=== PATIENT | female | born 1985 | race African-American/Black ===

== ENCOUNTER 2018-01-11 18:56 | Emergency (ER) | payer OTHER ==
[~2018-01-11] VITALS: Ht 162.6 cm; Wt 123.0 kg
[2018-01-12] MEDS ORDERED: SODIUM CHLORIDE 0.9% 1,000 ML IV ONE (03:45)
[2018-01-12] MEDS ORDERED: MECLIZINE 25MG TABLET PO ONE (03:45)
[2018-01-12 04:15] LABS: BASOPHILS % 0.4 % (0.0-2.0); EOSINOPHILS % 2.1 % (0.0-5.0); HEMATOCRIT. 32.4 % (36.0-48.0); LYMPHOCYTES % 22.6 % (20.0-50.0); MEAN CORPUSCULAR HEMOGLOBIN 22.7 pg (28.0-32.0); MEAN CORPUSCULAR VOLUME 73.3 fL (81.0-99.0); MEAN PLATELET VOLUME 8.9 fl (7.4-10.4); MONOCYTES % 7.1 % (2.0-8.0); NEUTROPHILS % 67.8 % (40.0-76.0); PLATELET 366 x1000/uL (130-400); RED BLOOD CELL COUNT 4.41 mill/uL (4.2-5.4); RED CELL DISTRIBUTION WIDTH 18.3 % (11.6-14.6)
[2018-01-12 04:19] LABS: PROTHROMBIN TIME 10.5 sec (9.4-11.6)
[2018-01-12 04:23] LABS: CHLORIDE 105 mEq/L (98-107)
[2018-01-12 04:24] LABS: HCG SCREEN NEGATIVE
[2018-01-12 04:25] LABS: CLARITY URINE CLOUDY (CLEAR); COLOR URINE YELLOW (YELLOW); KETONES URINE NEGATIVE (NEGATIVE); LEUKOCYTE ESTERASE URINE 2+ (NEGATIVE); NITRITE URINE NEGATIVE (NEGATIVE); OCCULT BLOOD URINE 3+ (NEGATIVE); PROTEIN URINE TRACE (NEGATIVE); SPECIFIC GRAVITY URINE 1.027 (1.005-1.030); UROBILINOGEN URINE 0.2 E.U./dL (0.2-1.0)
[2018-01-12 04:29] LABS: ETHANOL BLOOD < 10 mg/dL
[2018-01-12 05:07] LABS: *AMPHETAMINES SCREEN URINE NEGATIVE (NEGATIVE); *BARBITURATES SCREEN URINE NEGATIVE (NEGATIVE); CANNABINOID URINE SCREEN NEGATIVE (NEGATIVE); OPIATES URINE SCREEN NEGATIVE (NEGATIVE); PHENCYCLIDINE URINE SCREEN NEGATIVE (NEGATIVE)
[2018-01-12 05:21] LABS: *BENZODIAZEPINES SCREEN URINE NEGATIVE (NEGATIVE); *COCAINE SCREEN URINE NEGATIVE (NEGATIVE); METHADONE URINE SCREEN NEGATIVE (NEGATIVE)
[2018-01-12] MEDS ORDERED: CEFTRIAXONE 1 G PREMIX 50 ML IV NR (05:45)
[2018-01-12 06:41] VITALS: BP 124/80
== END 2018-01-12 06:41 | disposition home or self-care (01) ==
LOC: ER 18:56
DX: R42 Dizziness and giddiness (principal); N39.0 Urinary tract infection, site not specified; B96.89 Other specified bacterial agents as the cause of diseases classified elsewhere; R03.0 Elevated blood-pressure reading, without diagnosis of hypertension; E87.2 Acidosis; D64.9 Anemia, unspecified
CPT/HCPCS: 36415; 70450; 71045; 80053; 80305; 81003; 83605; 84484; 84703; 85025; 85044; 85610; 87077; 87086; 93005; 96361; 96365; 99285; G0482; J0696; J7030; Z7610; J8597

== ENCOUNTER 2020-08-15 13:01 | Emergency (ER) | payer OTHER ==
[~2020-08-15] VITALS: Ht 172.7 cm; Wt 118.0 kg
[2020-08-15] MEDS ORDERED: KETOROLAC 30MG/ML VIAL IV ONE (13:30)
[2020-08-15] MEDS ORDERED: SODIUM CHLORIDE 0.9% 1,000 ML IV ONE (13:30)
[2020-08-15 14:30] LABS: CLARITY URINE TURBID (CLEAR); COLOR URINE RED (YELLOW); KETONES URINE NEGATIVE (NEGATIVE); LEUKOCYTE ESTERASE URINE 2+ (NEGATIVE); NITRITE URINE POSITIVE (NEGATIVE); OCCULT BLOOD URINE 2+ (NEGATIVE); PROTEIN URINE 2+ (NEGATIVE); SPECIFIC GRAVITY URINE 1.023 (1.005-1.030); UROBILINOGEN URINE 0.2 E.U./dL (0.2-1.0)
[2020-08-15 14:32] LABS: BASOPHILS % 0.5 % (0.0-2.0); EOSINOPHILS % 1.3 % (0.0-5.0); HEMATOCRIT. 30.9 % (36.0-48.0); HEMOGLOBIN. 9.1 g/dL (12.0-16.0); LYMPHOCYTES % 13.2 % (20.0-50.0); MEAN CORPUSCULAR HEMOGLOBIN 17.7 pg (28.0-32.0); MEAN CORPUSCULAR VOLUME 60.2 fL (81.0-99.0); MEAN PLATELET VOLUME 9.4 fl (7.4-10.4); MONOCYTES % 4.2 % (2.0-8.0); NEUTROPHILS % 80.8 % (40.0-76.0); PLATELET 298 x1000/uL (130-400); RED BLOOD CELL COUNT 5.14 mill/uL (4.2-5.4); RED CELL DISTRIBUTION WIDTH 23.9 % (11.6-14.6)
[2020-08-15 14:36] LABS: CHLORIDE 103 mEq/L (98-107)
[2020-08-15 14:38] LABS: PROTHROMBIN TIME 10.3 sec (9.6-11.0)
[2020-08-15 14:39] LABS: HCG SCREEN NEGATIVE
[2020-08-15 15:15] VITALS: BP 147/86
[2020-08-15 15:30] LABS: PLATELET ESTIMATE NORMAL
== END 2020-08-15 15:49 | disposition home or self-care (01) ==
LOC: ER 13:17
DX: N93.9 Abnormal uterine and vaginal bleeding, unspecified (principal); D25.9 Leiomyoma of uterus, unspecified; D50.9 Iron deficiency anemia, unspecified; R79.89 Other specified abnormal findings of blood chemistry
CPT/HCPCS: 36415; 76830; 76856; 80053; 81003; 81025; 84703; 85025; 85610; 86850; 86900; 86901; 87077; 87086; 93005; 96361; 96374; 99285; J1885; J7030

== ENCOUNTER 2021-10-02 18:18 | Inpatient (IN) | payer OTHER ==
[~2021-10-02] VITALS: Ht 165.1 cm; Wt 122.0 kg
[2021-10-02 23:40] LABS: BASOPHILS % 0.8 % (0.0-2.0); EOSINOPHILS % 1.8 % (0.0-5.0); HEMATOCRIT. 24.1 % (36.0-48.0); LYMPHOCYTES % 20.8 % (20.0-50.0); MEAN CORPUSCULAR VOLUME 68.6 fL (81.0-99.0); MEAN PLATELET VOLUME 9.1 fl (7.4-10.4); MONOCYTES % 5.9 % (2.0-8.0); NEUTROPHILS % 70.7 % (40.0-76.0); PLATELET 501 x1000/uL (130-400); RED BLOOD CELL COUNT 3.52 mill/uL (4.2-5.4); RED CELL DISTRIBUTION WIDTH 27.6 % (11.6-14.6)
[2021-10-02 23:45] LABS: CHLORIDE 106 mEq/L (98-107)
[2021-10-02 23:53] LABS: PLATELET ESTIMATE NORMAL
[2021-10-02 23:55] LABS: B-HCG QUANTITATIVE < 1 mIU/mL (<3)
[2021-10-03] MEDS ORDERED: SODIUM CHLORIDE 0.9% 1,000 ML IV ONE
[2021-10-03 09:00] VITALS: BP 147/93
[2021-10-03] MEDS ORDERED: FERR325T23 MT (09:59)
[2021-10-03] MEDS ORDERED: IPRATROPIUM/ALBUTEROL 0.5-3(2.5)MG/3ML NEB HHN PRN (10:15)
[2021-10-03] MEDS ORDERED: DIPHENHYDRAMINE 50MG/ML VIAL IV PRN (10:15)
[2021-10-03] MEDS ORDERED: ONDANSETRON HCL 4MG/2ML INJ IV PRN (10:15)
[2021-10-03] MEDS ORDERED: ACETAMINOPHEN 325MG TABLET PO PRN (10:15)
[2021-10-03] MEDS ORDERED: CLONIDINE 0.1MG TABLET PO PRN (10:15)
[2021-10-03 12:00] VITALS: BP 121/77
[2021-10-03 16:00] VITALS: BP 138/89
[2021-10-03 20:00] VITALS: BP 129/66
[2021-10-04] VITALS (12 sets, daily range): BP systolic 112–152; BP diastolic 61–89
[2021-10-04 05:59] LABS: BASOPHILS % 0.5 % (0.0-2.0); EOSINOPHILS % 2.6 % (0.0-5.0); HEMATOCRIT. 23.9 % (36.0-48.0); HEMOGLOBIN. 7.2 g/dL (12.0-16.0); LYMPHOCYTES % 18.8 % (20.0-50.0); MEAN CORPUSCULAR VOLUME 69.6 fL (81.0-99.0); MONOCYTES % 6.9 % (2.0-8.0); NEUTROPHILS % 71.2 % (40.0-76.0); PLATELET 449 x1000/uL (130-400); RED BLOOD CELL COUNT 3.43 mill/uL (4.2-5.4); RED CELL DISTRIBUTION WIDTH 28.5 % (11.6-14.6)
[2021-10-04 06:18] LABS: CHLORIDE 107 mEq/L (98-107)
[2021-10-04 06:27] LABS: LDL CHOLESTEROL 101 mg/dL (5-100)
[2021-10-04 06:29] LABS: HDL CHOLESTEROL 60 mg/dL (40-59)
[2021-10-04 19:09] LABS: HEMATOCRIT 30.8 % (36.0-48.0); HEMOGLOBIN 9.3 g/dL (12.0-16.0)
== END 2021-10-04 20:25 | disposition home or self-care (01) | DRG 532 ==
LOC: ER 18:18 → 6WST 10-03 00:41 → ENRESERV 10-03 07:32
PROVIDERS: ADMIT Internal Medicine; ATTEND Internal Medicine
PROC: 30233M1 Transfusion of Nonautologous Plasma Cryoprecipitate into Peripheral Vein, Percutaneous Approach (ICD-10-PCS; principal; 2021-10-03)
DX: D25.9 Leiomyoma of uterus, unspecified (principal); D27.1 Benign neoplasm of left ovary; D64.9 Anemia, unspecified; N93.8 Other specified abnormal uterine and vaginal bleeding; Z20.822 Contact with and (suspected) exposure to COVID-19
CPT/HCPCS: 36415; 76830; 76856; 80053; 80061; 84443; 84702; 85014; 85018; 85025; 85049; 85384; 86850; 86900; 86920; 87426; 93005; 93970; 99285; J7030; J7040; P9016

== ENCOUNTER 2023-01-28 21:44 | Inpatient (IN) | payer OTHER ==
[~2023-01-28] VITALS: Ht 165.1 cm; Wt 127.0 kg
[~2023-01-28 21:44] MED LIST: FERR325T23 MT
[2023-01-29] VITALS (7 sets, daily range): BP systolic 140–168; BP diastolic 73–94
[2023-01-29] MEDS ORDERED: SODIUM CHLORIDE 0.9% 1,000 ML IV ONE (03:45)
[2023-01-29 04:15] LABS: BASOPHILS % 0.9 % (0.0-2.0); EOSINOPHILS % 2.1 % (0.0-5.0); HEMATOCRIT. 25.8 % (36.0-48.0); HEMOGLOBIN. 7.4 g/dL (12.0-16.0); LYMPHOCYTES % 17.6 % (20.0-50.0); MEAN CORPUSCULAR HEMOGLOBIN 16.4 pg (28.0-32.0); MEAN CORPUSCULAR VOLUME 57.1 fL (81.0-99.0); MEAN PLATELET VOLUME 9.4 fl (7.4-10.4); MONOCYTES % 6.3 % (2.0-8.0); NEUTROPHILS % 73.1 % (40.0-76.0); PLATELET 307 x1000/uL (130-400); RED BLOOD CELL COUNT 4.52 mill/uL (4.2-5.4); RED CELL DISTRIBUTION WIDTH 22.3 % (11.6-14.6)
[2023-01-29 04:32] LABS: CHLORIDE 105 mEq/L (98-107)
[2023-01-29 04:40] LABS: B-HCG QUANTITATIVE < 1 mIU/mL (<3)
[2023-01-29 04:45] LABS: PLATELET ESTIMATE NORMAL
[2023-01-29 05:16] LABS: CLARITY URINE CLEAR (CLEAR); COLOR URINE DARK YELLOW (YELLOW); KETONES URINE TRACE (NEGATIVE); LEUKOCYTE ESTERASE URINE TRACE (NEGATIVE); NITRITE URINE NEGATIVE (NEGATIVE); OCCULT BLOOD URINE NEGATIVE (NEGATIVE); PROTEIN URINE TRACE (NEGATIVE); SPECIFIC GRAVITY URINE 1.029 (1.005-1.030)
[2023-01-29] MEDS ORDERED: CLONIDINE 0.1MG TABLET PO PRN (09:45)
[2023-01-29] MEDS ORDERED: DIPHENHYDRAMINE 50MG/ML VIAL IV PRN (09:45)
[2023-01-29] MEDS ORDERED: IPRATROPIUM/ALBUTEROL 0.5-3(2.5)MG/3ML NEB HHN PRN (09:45)
[2023-01-29] MEDS ORDERED: ONDANSETRON HCL 4MG/2ML INJ IV PRN (09:45)
[2023-01-29] MEDS ORDERED: ACETAMINOPHEN 325MG TABLET PO PRN (09:45)
[2023-01-29] MEDS ORDERED: IPRATROPIUM BROMIDE (0.02%) 0.5MG/2.5ML NEB HHN PRN (13:30)
[2023-01-29] MEDS ORDERED: ALBUTEROL (0.083%) 2.5MG/3ML NEB HHN PRN (13:30)
[2023-01-29] MEDS ORDERED: DEXTROSE 50% WATER 50ML SYRINGE IV PRN (14:15)
[2023-01-29] MEDS: BLOOD SUGAR DIAGNOSTIC STRIP TEST SCH ×2 (17:20→21:48)
[2023-01-29] MEDS: INSULIN LISPRO 100 UNITS/ML SUBCUT SCH ×2 (17:20→21:00)
[2023-01-30] VITALS: BP 155/96
[2023-01-30 04:00] VITALS: BP 149/91
[2023-01-30] MEDS: BLOOD SUGAR DIAGNOSTIC STRIP TEST SCH ×2 (07:05→13:14)
[2023-01-30 07:11] LABS: BASOPHILS % 0.8 % (0.0-2.0); EOSINOPHILS % 5.2 % (0.0-5.0); HEMATOCRIT. 29.1 % (36.0-48.0); HEMOGLOBIN. 8.9 g/dL (12.0-16.0); LYMPHOCYTES % 19.9 % (20.0-50.0); MEAN CORPUSCULAR HEMOGLOBIN 18.8 pg (28.0-32.0); MEAN CORPUSCULAR VOLUME 61.2 fL (81.0-99.0); MEAN PLATELET VOLUME 9.1 fl (7.4-10.4); MONOCYTES % 7.8 % (2.0-8.0); NEUTROPHILS % 66.3 % (40.0-76.0); PLATELET 253 x1000/uL (130-400); RED BLOOD CELL COUNT 4.76 mill/uL (4.2-5.4); RED CELL DISTRIBUTION WIDTH 27.9 % (11.6-14.6)
[2023-01-30] MEDS: INSULIN LISPRO 100 UNITS/ML SUBCUT SCH ×2 (07:50→12:50)
[2023-01-30 08:00] VITALS: BP 147/90
[2023-01-30 09:24] LABS: CHLORIDE 105 mEq/L (98-107)
[2023-01-30 12:00] VITALS: BP 120/83
[2023-01-30 14:24] VITALS: BP 120/83
== END 2023-01-30 15:15 | disposition home or self-care (01) | DRG 532 ==
LOC: ER 21:44 → MICUSO 01-29 06:42 → 6EST 01-29 13:00
PROVIDERS: ADMIT Internal Medicine; ATTEND Internal Medicine
PROC: 30233N1 Transfusion of Nonautologous Red Blood Cells into Peripheral Vein, Percutaneous Approach (ICD-10-PCS; principal; 2023-01-29)
DX: D25.9 Leiomyoma of uterus, unspecified (principal); D62 Acute posthemorrhagic anemia; D36.9 Benign neoplasm, unspecified site; R93.89 Abnormal findings on diagnostic imaging of other specified body structures; R73.9 Hyperglycemia, unspecified; R74.01 Elevation of levels of liver transaminase levels
CPT/HCPCS: 36415; 71045; 74176; 76830; 76856; 80053; 81003; 82962; 83036; 84702; 85025; 86850; 86900; 86920; 93005; 93970; 99285; J7030; P9016